=== PATIENT | male | born 1980 | race Caucasian/White ===

== ENCOUNTER 2019-12-14 08:47 | Inpatient (IN) | payer MEDICAID ==
[~2019-12-14] VITALS: Ht 172.7 cm; Wt 73.6 kg
--- NOTE | 2019-12-15 15:08 | NUR ---
CM: Pt's [phone] called informed SS that pt's been off of Viborg for over 6months. He was taking 600mg 2x/day. When pt gets agitated Haldol was helpful. Althea Gibson CONTACT LENS CURVE GRINDER Addendum: 12/15/19 at 1512 by Althea Gibson Amended: Links added.
[2019-12-15] MEDS ORDERED: NICOTINE POLACRILEX 2 MG LOZENGE BC PRN (15:20)
[2019-12-15] MEDS ORDERED: magnesium hydroxide 30ml (MOM) UD suspension PO PRN (15:20)
[2019-12-15] MEDS ORDERED: acetaminophen 325mg tablet PO PRN ×2 (15:20)
[2019-12-15] MEDS ORDERED: loperamide 2mg capsule PO PRN (15:20)
[2019-12-15] MEDS ORDERED: mag hydrox/Alum hydrox/simeth 30ml oral suspension PO PRN (15:20)
[2019-12-15] MEDS ORDERED: traZODone 50mg tablet PO PRN (15:20)
[2019-12-15] MEDS ORDERED: LORazepam 1 MG tablet PO PRN (15:20)
[2019-12-15] MEDS ORDERED: HALO5TAB PO (17:24)
[2019-12-15] MEDS ORDERED: OLAN10TA3 PO (17:24)
[2019-12-15] MEDS ORDERED: GEMF600T89 PO (17:24)
[2019-12-15] MEDS ORDERED: AMLO10TA48 PO (17:24)
[2019-12-15] MEDS ORDERED: ZIPR20CA2 PO (17:24)
[2019-12-15] MEDS ORDERED: DULO-31 PO (17:24)
[2019-12-15] MEDS ORDERED: LITH300T34 PO (17:24)
[2019-12-15] MEDS ORDERED: LURA80TA3 PO (17:24)
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
[2019-12-15 18:37] VITALS: BP 133/85
[2019-12-15] MEDS ORDERED: OLANZapine 5mg rapidly disint. tablet PO PRN (19:40)
[2019-12-15] MEDS ORDERED: olanzapine 10mg tablet PO PRN (19:40)
[2019-12-15 20:00] VITALS: BP 111/81
[2019-12-15] MEDS: gemfibrozil 600mg tablet PO SCH (20:07)
[2019-12-15] MEDS: ziprasidone 20mg capsule PO SCH (20:07)
[2019-12-15] MEDS: olanzapine 10mg tablet PO SCH (20:07)
[2019-12-15 21:01] VITALS: BP 111/81
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
[2019-12-16 07:13] LABS: CHOL/HDL RATIO 5.3 (0.00-4.99); CHOLESTEROL 210 MG/DL (0-200); HDL CHOLESTEROL 40 MG/DL (35-60); HEMOGLOBIN A1C 5.8 % (4.5-6.2); LDL CHOLESTEROL 138 MG/DL (50-100); TRIGLYCERIDES 168 MG/DL (20-135)
[2019-12-16 07:59] VITALS: BP 124/71
[2019-12-16] MEDS ORDERED: nicotine 21mg patch - 24 hr TD SCH (08:00)
[2019-12-16] MEDS: amLODIPine 5mg tablet PO SCH (08:13)
[2019-12-16] MEDS: ziprasidone 20mg capsule PO SCH ×2 (08:13→20:50)
[2019-12-16] MEDS: gemfibrozil 600mg tablet PO SCH ×2 (08:13→20:50)
[2019-12-16] MEDS: nicotine 7mg patch - 24hr TD SCH (08:14)
--- NOTE | 2019-12-16 16:21 | NUR ---
Nursing Progress Note: Legal hold:5150 Client on involuntary status for: DTS. Report received from Lily Berman RN with use of SBAR Why are they here: Pt admitted from [facility] in [place] at 1520. He arrived on the unit in a gurney in restraints accompanied by national park ranger and security to room 325B. Pt was brought into ER there on 12/13/19 in handcuffs on a 5150 for DTS. He had an argument with his over finances and threatened to kill himself. Pt has a Hx of Bipolar D/O, ADHD, and severe methamphetamine use disorder. Pt eloped from the ER X 2 and so was kept in restraints during his entire stay. Pt has been noncompliant with his medications, had not picked up his prescriptions since mid September of this year. Assessment: Woke pt up for breakfast and morning medications, he was cooperative. Pt reported that he feels "groggy." Pt denied SI, stated that "I'm actually felling better, I got some sleep." Pt contracts for safety here, pt states that he feels "hopeful" today. Pt reports that he attempted to kill himself once 15 years ago by overdosing on drugs, "but my tolerance was too high." Pt admits to frequent recent thoughts of suicide but had not formulated any plan and has had no attempts since 15 years ago. Pt scores as a moderate risk on the suicide risk assessment, JESSICA Nicole notified, he instructed to continue pt on Q 15 minute checks, no need for a higher level of observation. Pt slept for the majority of the day, up at mealtimes to the dining room. S/I, H/I: Patient denies. A/VH: Patient denies. Sleep: Pt slept 8.5 hours last night per noc shift report. ADL's: Independent. Group attendance: No Were med's taken: Yes Any med S/E: Pt reported feeling "groggy." Mental Status Exam Appearance: Disheveled dark haired man dressed in green hospital scrubs. Eye contact: Fair Behavior: Calm, cooperative, isolative to self, slept for most of the day. Speech: Rapid, pressured. Mood: "better," "hopeful" Affect: Anxious Thought process: Linear Thought Content: He needs sleep, he is hopeful. Cognition: A/O X 4 Insight: Fair Judgment: Poor. Interventions PRN's used: None. Therapeutic interventions: 1:1 assessment, encouragement to express thoughts and feelings, active listening, encouragement to come out of room for meals, ensured contract for safety, positive reinforcement, Q 15 minute safety checks. Restraints/seclusion/emergency medication: N/A Justification of Continued Inpatient Treatment: Pt needs stabilization, he continues to require a safe and supportive environment with medication adjustments and monitoring to decrease risk of rehospitalization.
[2019-12-16 19:00] VITALS: BP 131/89
[2019-12-16] MEDS: olanzapine 10mg tablet PO SCH (20:51)
[2019-12-16] MEDS ORDERED: docusate sod 100mg capsule PO ONE (21:00)
--- NOTE | 2019-12-17 02:32 | NUR ---
Nursing Progress Note: Legal hold:5150 Client on involuntary status for: DTS. Report received from MARGARETTE Lowe with use of SBAR Why are they here: Pt admitted from [facility] in [place] at 1520. He arrived on the unit in a gurney in restraints accompanied by framing specialist and security to room 325B. Pt was brought into ER there on 12/13/19 in handcuffs on a 5150 for DTS. He had an argument with his over finances and threatened to kill himself. Pt has a Hx of Bipolar D/O, ADHD, and severe methamphetamine use disorder. Pt eloped from the ER X 2 and so was kept in restraints during his entire stay. Pt has been noncompliant with his medications, had not picked up his prescriptions since mid September of this year. Assessment: This patient is self isolating in his room this shift. Patient states he ate meals, experienced some constipation, and would like a stool softener. This patient makes intermittent eye contact. He speaks softly. Patient describes feeling anxious about his plants at home, "my is not very responsible." Patient does admit to feeling depressed. He denies S/I, H/I, he states no voices. Patient states he is feeling better since arriving here, "I'm getting lots of rest." S/I, H/I: Patient denies. A/VH: Patient denies. Sleep: Pt is sleeping well. Will tally at 0500 hours. ADL's: Independent. Group attendance: No group on mine shifter. Were med's taken: Yes, patient is medication compliant. Any med S/E: Denies, none observed. Mental Status Exam Appearance: Disheveled and wearing scrubs. Eye contact: Fair Behavior: Calm, cooperative, isolative to self, slept for most of the day. Speech: Rapid, pressured. Mood: Upbeat, "I'm feeling better." Affect: Flat. Thought process: Linear. Thought Content: Worried about things at home. Cognition: A/O X 4. Insight: Fair Judgment: Poor. Interventions PRN's used: None. Therapeutic interventions: 1:1 assessment, encouragement to express thoughts and feelings, active listening, encouragement to come out of room for meals, ensured contract for safety, positive reinforcement, Q 15 minute safety checks. Restraints/seclusion/emergency medication: N/A Justification of Continued Inpatient Treatment: Pt needs stabilization, he continues to require a safe and supportive environment with medication adjustments and monitoring to decrease risk of rehospitalization.
[2019-12-17 08:00] VITALS: BP 127/79
[2019-12-17] MEDS: docusate sod 100mg capsule PO SCH ×2 (08:21→20:50)
[2019-12-17] MEDS: gemfibrozil 600mg tablet PO SCH ×2 (08:21→20:50)
[2019-12-17] MEDS: ziprasidone 20mg capsule PO SCH ×2 (08:21→20:50)
[2019-12-17] MEDS: amLODIPine 5mg tablet PO SCH (08:22)
[2019-12-17] MEDS: nicotine 7mg patch - 24hr TD SCH (08:25)
--- NOTE | 2019-12-17 10:00 | NUR ---
Group Therapy: Process Group This Clinicians goals for this process group were as follows: (1) Ask scaling questions about Patients current anxiety, depression, and irritability symptoms as a check-in. (2) Share psychoeducation about automatic thoughts and cognitive distortions. (3) Share psychoeducation on CBT thought-stopping and, thought-reframing. (4) Discuss strategies for identifying negative, unhelpful, and/or irrational thoughts as quickly as possible to avoid unwanted escalation of mental health symptoms. (5) Process Clients thoughts and reflections on this topic within the group milieu. Patient identified experiencing the following levels of anxiety, depression, and anger/irritability while present in the group milieu. Anxiety: 09/09 Depression: 11/09 Anger/irritability: 06/11 Patient presented as open and cooperative within the group milieu. Patient wore casual, nondescript, personal clothing that were appropriate within the milieu. Patient's thought content was clear and concrete. Patient's thought process was clear, coherent, and linear. Patient presented as verbally engaged and nonobtrusive within the group milieu. In the context of viewing situations through positive core beliefs, which--in turn--can influence one to think positive/rational surface levels thoughts that lead to a positive chain reaction of additional thoughts, feelings, and actions, Patient reported that being in medical milieu could help him better understand his personal, "Motivations," and help him from being in "Denial" regarding his mental health symptoms. Enzo Tena MA, JEREMIAS Addendum: 12/17/19 at 1152 by Enzo Tena SS Amended: Links added.
--- NOTE | 2019-12-17 15:32 | NUR ---
Nursing Progress Note: Legal hold: 5150 Client on involuntary status for: DTS. Report received from Lily Berman RN with use of SBAR Why are they here: Pt admitted from [facility] in [place] at 1520. He arrived on the unit in a gurney in restraints accompanied by national business director and security to room 325B. Pt was brought into ER there on 12/13/19 in handcuffs on a 5150 for DTS. He had an argument with his over finances and threatened to kill himself. Pt has a Hx of Bipolar D/O, ADHD, and severe methamphetamine use disorder. Pt eloped from the ER X 2 and so was kept in restraints during his entire stay. Pt has been noncompliant with his medications, had not picked up his prescriptions since mid September of this year. Assessment: When asked about depression today, pt replied, "midrange, I'm just feeling homesick." Pt c/o feeling "groggy" again, he believes from the medications. Pt denied SI. Pt c/o 4/10 neck pain this morning and was medicated with prn Tylenol 650 mg at 0822 with good effect. Pt's Josselin called and wanted to know how he was doing and what medications he was taking here. stated that the pt needs his Rarden and requested to speak with the doctor. Notified Dr Elena of pt's 's request and provided her phone number. S/I, H/I: Patient denies, may be minimizing symptoms. A/VH: Patient denies. Sleep: Pt slept 8 hours last night per noc shift report. ADL's: Independent. Group attendance: Yes Were med's taken: Yes Any med S/E: Pt reported feeling "groggy." Mental Status Exam Appearance: Messy dark hair, dressed in [employer] green pants and a [facility] scrub top. Eye contact: Fair Behavior: Calm, cooperative, isolative to self, slept for most of the day. Speech: Clear, audible, minimal Mood: Depressed Affect: mildly anxious and guarded Thought process: Linear Thought Content: He's feeling homesick. Cognition: A/O X 4 Insight: Fair Judgment: Poor. Interventions PRN's used: None. Therapeutic interventions: 1:1 assessment, encouragement to express thoughts and feelings, active listening, therapeutic conversation, encouragement to attend groups, ensured contract for safety, positive reinforcement, Q 15 minute safety checks. Restraints/seclusion/emergency medication: N/A Justification of Continued Inpatient Treatment: Pt needs stabilization, he continues to require a safe and supportive environment with medication adjustments and monitoring to decrease risk of rehospitalization.
--- NOTE | 2019-12-17 18:41 | NUR ---
CM Presenting Issues: Pt continues to be paranoid, telling staff that we are holding him against his will, not able to understand that he's currently still on a 5150 Hold. Interventions: SS met w/pt to engage him in pre-dcp activities. Pt demanded that we d/c him and send him home via ambulance. SS able to get pt to calm down and accept that his Hold will tomorrow, and the doctor will determine if he can be d/c at that time. SS attempted to get pt to agree to a voluntary stay in the event that doctor feels that a couple more days in the hospital would be needed. Pt was not willing to do so. Plan: Pt may require a 5250 in the event that he needs additional inpatient time to stabilize. Althea Gibson LCSW Addendum: 12/17/19 at 1849 by Althea AUGUSTINE Amended: Links added.
[2019-12-17 20:00] VITALS: BP 109/78
[2019-12-17] MEDS: olanzapine 10mg tablet PO SCH (20:50)
--- NOTE | 2019-12-18 00:56 | NUR ---
Nursing Progress Note: Legal hold:5150 Client on involuntary status for: DTS. Report received from MARGARETTE Romeo with use of SBAR Why are they here: Pt admitted from [facility] in [place] at 1520. He arrived on the unit in a gurney in restraints accompanied by electrical power station technician and security to room 325B. Pt was brought into ER there on 12/13/19 in handcuffs on a 5150 for DTS. He had an argument with his over finances and threatened to kill himself. Pt has a Hx of Bipolar D/O, ADHD, and severe methamphetamine use disorder. Pt eloped from the ER X 2 and so was kept in restraints during his entire stay. Pt has been noncompliant with his medications, had not picked up his prescriptions since mid September of this year. Assessment: Patient was in his room sleeping post shift change. 1:1 Interview: This patient awakens easily. Patient states he ate dinner but has just preferred to stay in his room. Patient states he still feels depressed. "I just need to go home, I'm worried about my garden." Patient states he lives with his . "She is Bipolar and takes her med's. We haven't got along for years, I just need to get a divorce." Patient minimizes his psychological problems. He does state that he has gotten rest while here. S/I, H/I: Patient denies. A/VH: Patient denies. Sleep: Will tally at 0500 hours. ADL's: Independent. Group attendance: N/A, shift leader. Were med's taken: Yes, patient is medication compliant. Any med S/E: Denies, none observed. Mental Status Exam Appearance: Disheveled and wearing scrubs. Eye contact: Fair Behavior: Calm, cooperative, frequent naps. Speech: Rapid, pressured. Mood: Upbeat, "I'm feeling better." Affect: Flat. Thought process: Linear. Thought Content: Worried about things at home. Cognition: A/O X 4. Insight: Fair Judgment: Poor. Interventions PRN's used: None. Therapeutic interventions: 1:1 assessment, encouragement to express thoughts and feelings, active listening, encouragement to come out of room for meals, ensured contract for safety, positive reinforcement, Q 15 minute safety checks. Restraints/seclusion/emergency medication: N/A Justification of Continued Inpatient Treatment: Pt needs stabilization, he continues to require a safe and supportive environment with medication adjustments and monitoring to decrease risk of rehospitalization.
[2019-12-18 08:00] VITALS: BP 123/78
[2019-12-18] MEDS: amLODIPine 5mg tablet PO SCH (08:01)
[2019-12-18] MEDS: docusate sod 100mg capsule PO SCH (08:01)
[2019-12-18] MEDS: ziprasidone 20mg capsule PO SCH (08:01)
[2019-12-18] MEDS: gemfibrozil 600mg tablet PO SCH (08:01)
[2019-12-18] MEDS: nicotine 7mg patch - 24hr TD SCH (08:02)
[2019-12-18] MEDS ORDERED: AMLO10TA48 PO (13:14)
[2019-12-18] MEDS ORDERED: OLAN20TA34 PO (13:14)
[2019-12-18] MEDS ORDERED: NICO-630 TD (13:14)
[2019-12-18] MEDS ORDERED: DOCU100C40 PO (13:14)
[2019-12-18] MEDS ORDERED: NICO-668 BC (13:14)
[2019-12-18] MEDS ORDERED: GEMF600T89 PO (13:14)
--- NOTE | 2019-12-18 17:45 | NUR ---
Nursing Progress Note: Legal hold: 5150 Client on involuntary status for: DTS Report received from Lily Berman RN with use of SBAR Why are they here: Pt admitted from [facility] in [place] at 1520. He arrived on the unit in a gurney in restraints accompanied by events solutions consultant and security to room 325B. Pt was brought into ER there on 12/13/19 in handcuffs on a 5150 for DTS. He had an argument with his over finances and threatened to kill himself. Pt has a Hx of Bipolar D/O, ADHD, and severe methamphetamine use disorder. Pt eloped from the ER X 2 and so was kept in restraints during his entire stay. Pt has been noncompliant with his medications, had not picked up his prescriptions since mid September of this year. Assessment: Received Pt in bed sleeping w/o distress at beginning of shift. Pt cooperative with vitals and took AM meds w/o issue. Pt overall calm and cooperative and speaks freely about his marriage being over and his keeping finances from him. Pt made a phone call, shaved and showered. Pt reports being homesick and wants to go home and care for his garden. Pt isolated to room for most of the day and took naps. Pt denies SI and complimentary of [facility] approach to Pts. Pt watched TV with others in afternoon appropriately. Arrangements made with [facility] to pick Pt up as he will be discharged today. They will pick him up between 1700 and 1900. Pts meds have been called into pharmacy in [place] and discharge paperwork is signed. S/I, H/I: Patient denies A/VH: Patient denies. Sleep: Pt napped ADL's: Independent. Group attendance: Yes Were med's taken: Yes Any med S/E: Im tired Mental Status Exam Appearance: Casual in scrubs Eye contact: Fair Behavior: Calm, cooperative, isolative Speech: Clear, audible Mood: Depressed Affect: mildly anxious and guarded Thought process: Linear Thought Content: He's feeling homesick Cognition: A/O X 4 Insight: Fair Judgment: Poor. Interventions PRN's used: None. Therapeutic interventions: 1:1 assessment, encouragement to express thoughts and feelings, active listening, therapeutic conversation, encouragement to attend groups, ensured contract for safety, positive reinforcement, Q 15 minute safety checks. Restraints/seclusion/emergency medication: N/A Justification of Continued Inpatient Treatment: Pt needs stabilization, he continues to require a safe and supportive environment with medication adjustments and monitoring to decrease risk of rehospitalization. Addendum: 12/18/19 at 1819 by Davie Dawson RN Discharge medications were unable to be called in to a pharmacy in [place] due to them being closed. Pt agreed to have them called into [facility] in [place] on Friday12/20/19.
--- NOTE | 2019-12-18 18:10 | NUR ---
Nursing Discharge Note Pt was discharged from [facility] at 1805 and picked up by drivers contracted by [employer]. [facility]. Pt in euthymic/pleasant mood with congruent affect, and denies SI. Pt in no acute physical or emotional distress and has been improving since admission. Pt's valuables were inventoried and returned to him. Pt understands discharge instructions and received prescription for nicotine replacement.
--- NOTE | 2019-12-20 09:00 | NUR ---
Discharge prescriptions called in to [facility] in [place].
== END 2019-12-18 19:00 | disposition home or self-care (01) | DRG 753 ==
LOC: ADULT MH 12-15 14:40
PROVIDERS: ADMIT Psychiatry & Neurology Psychiatry; ATTEND Psychiatry & Neurology Psychiatry
DX: F31.9 Bipolar disorder, unspecified (principal); R45.851 Suicidal ideations; I10 Essential (primary) hypertension; E78.00 Pure hypercholesterolemia, unspecified; E78.1 Pure hyperglyceridemia; F12.10 Cannabis abuse, uncomplicated; F15.90 Other stimulant use, unspecified, uncomplicated; F17.210 Nicotine dependence, cigarettes, uncomplicated; G47.00 Insomnia, unspecified; F90.9 Attention-deficit hyperactivity disorder, unspecified type; K59.00 Constipation, unspecified; Z80.3 Family history of malignant neoplasm of breast; Z80.8 Family history of malignant neoplasm of other organs or systems
CPT/HCPCS: 36415; 80061; 83036; 87081; 99285